=== PATIENT | female | born 1970 | race Caucasian/White ===

== ENCOUNTER → 2018-06-13 | Outpatient (CLI) | payer BC, OTHER ==
--- NOTE | 2018-06-13 09:16 | WOMENS IMAGING REPORT ---
EXAM DESCRIPTION: BILAT SCREENING MAMMO W/CAD COMPLETED DATE/TIME: 06/13/2018 7:34 am REASON FOR STUDY: SCREENING MAMMO Z12.31 ENCNTR SCREEN MAMMOGRAM FOR MALIGNANT NEOPLASM OF IGGY COMPARISON: 2011, 2012 TECHNIQUE: Standard craniocaudal and mediolateral oblique views of each breast recorded using digita l acquisition. LIMITATIONS: None. FINDINGS: No masses, calcifications or architectural distortion. No areas of suspicion. Read with the assistance of CAD. .[facility] - R2 Cenova Version 1.3 .[facility] - R2 Cenova Version 1.3 .[facility] - R2 Cenova Version 2.4 .[facility] [place] - R2 Cenova Version 2.4 .[facility] - R2 Faculty Dean Version 9.2 IMPRESSION: NORMAL MAMMOGRAM. BIRADS 1. BREAST DENSITY: b. There are scattered areas of fibroglandular density. BIRAD: 1 NEGATIVE RECOMMENDATION: ROUTINE SCREENING COMMENT: The patient has been notified of the results by letter per MQSA requirements. Additional no tification policies are in place for contacting patient with suspicious or incomplete findings. Quality ID #[id number]: The [employer] recommends an annual screening mammogram for women aged 40 years or over. This facility utilizes a reminder system to ensure that all patients receive reminder letters, and/or direct phone calls for appointments. This includes reminders for routine scr eening mammograms, diagnostic mammograms, or other Breast Imaging Interventions when appropriate. Th is patient will be placed in the appropriate reminder system. The [employer] (A[employer]) has developed recommendations for screening MRI of the breast s in certain patient populations, to be used in conjunction with mammography. Breast MRI surveillanc e may be appropriate for women with more than 20% lifetime risk of developing breast cancer as deter mined by genetic testing, significant family history of the disease, or history of mantle radiation f or Hodgkins Disease. ACR Practice Guidelines 2008. TECHNICAL DOCUMENTATION: FINDING NUMBER: (1) ASSESSMENT: (1) JOB ID: [id number] [employer]- All Rights Reserved Reading location - IP/workstation name: [email or web address]
== END ==
LOC: WI 07:14
PROVIDERS: ATTEND Obstetrics & Gynecology Gynecology
DX: Z12.31 Encounter for screening mammogram for malignant neoplasm of breast (principal)
CPT/HCPCS: 77067

== ENCOUNTER 2018-08-04 06:13 | Day surgery (SDC) | payer BC, OTHER ==
[2018-08-02 10:12] LABS: APPEARANCE,URINE CLEAR; BILIRUBIN,URINE NEGATIVE (NEGATIVE); COLOR,URINE STRAW; GLUCOSE, URINE NEGATIVE (NEGATIVE); KETONES,URINE NEGATIVE (NEGATIVE); LEUKOCYTE ESTERASE,URINE NEGATIVE (NEGATIVE); NITRITE,URINE NEGATIVE (NEGATIVE); PROTEIN,URINE NEGATIVE (NEGATIVE); URINE SPECIFIC GRAVITY 1.006; UROBILINOGEN,URINE NEGATIVE mg/dL (<2.0)
[2018-08-02 10:39] LABS: HEMATOCRIT 33.3 % (36.0-47.0); HEMOGLOBIN 11.2 g/dL (12.0-15.5); MEAN CORPUSCULAR HEMOGLOBIN 28.7 pg (27.0-33.4); MEAN CORPUSCULAR HGB CONC 33.6 g/dL (32.0-36.0); MEAN CORPUSCULAR VOLUME 85 fl (80-97); PLATELET COUNT 272 10^3/uL (150-450); RED BLOOD COUNT 3.91 10^6/uL (3.72-5.28); RED CELL DISTRIBUTION WIDTH 13.4 % (11.5-14.0); WHITE BLOOD COUNT 5.3 10^3/uL (4.0-10.5)
[~2018-08-04 06:13] MED LIST: LACTATED RINGERS 1000 ML IV PRN; LIDOCAINE 0.5% INJ-PF (5 MG/ML) 50 ML SDV SUBCUT PRN
[2018-08-04] MEDS ORDERED: FAMOTIDINE INJ/PF 20 MG/2 ML SDV IV ONE (07:36)
[2018-08-04] MEDS ORDERED: MIDAZOLAM 2 MG/2 ML INJ ONE ×2 (07:36→07:56)
[2018-08-04] MEDS ORDERED: FENTANYL CITRATE INJ/PF 100 MCG/2 ML AMPUL ONE ×2 (07:56→09:05)
[2018-08-04] MEDS ORDERED: ONDANSETRON HCL INJ/PF 4 MG/2 ML SDV ONE (07:56)
[2018-08-04] MEDS ORDERED: PROPOFOL INJ 200 MG/20 ML VIAL IV ONE (07:57)
[2018-08-04] MEDS ORDERED: FENTANYL CITRATE INJ/PF 100 MCG/2 ML AMPUL IV PRN ×3 (08:22)
[2018-08-04] MEDS ORDERED: PROMETHAZINE HCL INJ 25 MG/1 ML VIAL IV PRN (08:22)
[2018-08-04] MEDS ORDERED: DIPHENHYDRAMINE HCL 50 MG/ML VIAL IV PRN (08:22)
[2018-08-04] MEDS ORDERED: MORPHINE SULFATE 10 MG/ML INJ IV PRN (08:22)
[2018-08-04] MEDS ORDERED: MEPERIDINE HCL/PF INJ 25 MG/1 ML DISP.SYRIN IV PRN (08:22)
[2018-08-04] MEDS ORDERED: KETOROLAC TROMETHAMINE INJ/PF 30 MG/1 ML SDV IV PRN (08:48)
[2018-08-04] MEDS ORDERED: OXYCODONE-ACETAMINOPHEN 5-325 MG TABLET PO PRN ×2 (08:48)
[2018-08-04] MEDS ORDERED: IBUPROFEN 800 MG TABLET PO PRN (08:48)
[2018-08-04] MEDS ORDERED: RINGERS SOLUTION,LACTATED 1,000 ML IV PRN (08:48)
--- NOTE | 2018-08-04 08:52 | Operative Report ---
Operative Report DATE OF SURGERY: 08/04/18 PREOPERATIVE DIAGNOSIS: Menorrhagia POSTOPERATIVE DIAGNOSIS: Same plus uterine polyp OPERATION: Hysteroscopy D&C NovaSure ablation SURGEON: LOTTIE JOHNSTON ANESTHESIA: GA TISSUE REMOVED OR ALTERED: Endometrium COMPLICATIONS: None ESTIMATED BLOOD LOSS: None INTRAOPERATIVE FINDINGS: Small polyp in the uterine cavity, sounded to 7 cm, cavity length 4 cm in width is 3.5 cm PROCEDURE: Patient was taken the OR and placed in supine position. General anesthesia was induced. She is placed in a low dorsolithotomy position using Juan stirrups. Her perineum and vagina were prepared and draped in sterile fashion. Her bladder did not need emptied as she had just voided. Speculum was placed in the vagina and the anterior lip cervix was grasped with tenaculum. Sounded 7 cm before and after the case. Cervix was gently dilated allowing hysteroscope to be inserted. A small polyp could be seen in the uterine cavity otherwise were no other fibroids or polyps in the uterine cavity. A sharp curettage to remove the polyp. Endocervical and endometrial curettings were sent. The NovaSure ablation was placed tested and fired without difficulty. At the end of the case all instruments were removed. She was awoken in the OR and taken recovery in stable condition
--- NOTE | 2018-08-04 08:55 | Discharge Summary ---
Discharge Summary (SDC) - Discharge Final Diagnosis: Menorrhagia and uterine polyp Date of Surgery: 08/04/18 Discharge Date: 08/04/18 Condition: Good Prescriptions: Oxycodone HCl/Acetaminophen [Percocet 5-325 mg Tablet] 1 tab PO Q4HP PRN #20 tablet PRN Reason: Referrals: SURI ALEXANDER MD [Primary Care Provider] - Discharge Diet: Regular Discharge Activity: Activity As Tolerated, Pelvic Rest Home Care Assistance: None Needed Report the Following to Your Physician Immediately: Fever over 101 Degrees, Unusual Bleeding
[2018-08-04] MEDS ORDERED: IBUPROFEN 800 MG TABLET ONE (09:42)
[2018-08-04 10:51] VITALS: BP 113/54
== END 2018-08-04 10:40 | disposition home or self-care (01) ==
LOC: OROUT 06:13
PROVIDERS: ATTEND Obstetrics & Gynecology
DX: N92.0 Excessive and frequent menstruation with regular cycle (principal); N84.0 Polyp of corpus uteri; M71.9 Bursopathy, unspecified; Z79.1 Long term (current) use of non-steroidal anti-inflammatories (NSAID); Z79.899 Other long term (current) drug therapy; Z88.5 Allergy status to narcotic agent
CPT/HCPCS: 36415; 85027; 81025; 81001; 88305 ×2; 58563; J2250; J3010; J2405; J2704; S0028; 952

== ENCOUNTER → 2019-01-17 | Outpatient (CLI) | payer BC, OTHER ==
--- NOTE | 2019-01-17 13:30 | RADIOLOGY REPORT (SQ) ---
EXAM DESCRIPTION: BARIUM SWALLOW ESOPHAGUS COMPLETED DATE/TIME: 01/17/2019 9:24 am REASON FOR STUDY: DYSPHAGIA R13.14 DYSPHAGIA, PHARYNGOESOPHAGEAL PHASE COMPARISON: None. TECHNIQUE: Under fluoroscopic guidance, patient ingested effervescent granules followed by thick and thin barium. Fluoroscopic spot images and routine radiographic images acquired and stored on PACS. 12 MM BARIUM TABLET GIVEN: Yes. No significant delay in passage. LIMITATIONS: None. FLUOROSCOPY TIME: FLUORO TIME: 1.9 minutes 8 series of digital radiographic images saved to PACS. FINDINGS: NEUROMUSCULAR COORDINATION OF SWALLOW: Normal. No aspiration. ESOPHAGEAL MOTILITY: Normal peristalsis. No esophageal spasm. ESOPHAGEAL MUCOSA: Normal mucosa without masses or ulceration. GASTRO-ESOPHAGEAL JUNCTION: No hiatal hernia. There is unprovoked gastroesophageal reflux to the cer vical esophagus NON-GI TRACT STRUCTURES: No significant finding. OTHER: No other significant finding. IMPRESSION: Unprovoked gastroesophageal reflux to the cervical esophagus COMMENT: Quality ID 145: Final reports for procedures using fluoroscopy that document radiation exp osure indices, or exposure time and number of fluorographic images (if radiation exposure indices are not available) TECHNICAL DOCUMENTATION: JOB ID: [id number] [employer]- All Rights Reserved Reading location - IP/workstation name: [email or web address]
== END ==
LOC: RAD 09:20
PROVIDERS: ATTEND Family Medicine
DX: R13.14 Dysphagia, pharyngoesophageal phase (principal)
CPT/HCPCS: 74220